=== PATIENT | female | born 1975 | race Caucasian/White ===

== ENCOUNTER 2017-01-14 08:55 | Emergency (ER) | payer MEDICAID, OTHER ==
[2017-01-14 08:55] VITALS: BMI 27.3
[2017-01-14 09:12] VITALS: BP 115/70; PULSE 118; RESP 20; TEMP 101.3; O2SAT 100
--- NOTE | 2017-01-14 09:35 | C.PDOC ---
History Of Present Illness 41 year old female presents to the ED c/o mid-back pain for 3 days. Patient notes no radiation of pain. Patient was recently diagnose with herniated disks and is due for another MRI. Patient notes pain is unrelieved by Advil. Patient denies vomiting, nausea, SOB, fever, chills, weakness or numbness of the extremities or any other complaints. Time Seen by Provider: 01/14/17 09:27 Chief Complaint (Nursing): Back Pain History Per: Patient History/Exam Limitations: no limitations Onset/Duration Of Symptoms: Days Current Symptoms Are (Timing): Still Present Severity: Mild Previous Symptoms: Other (Herniated disks) Past Medical History Reviewed: Historical Data, Nursing Documentation, Vital Signs Vital Signs: Last Vital Signs Temp 101.3 F H 01/14/17 09:12 Pulse 118 H 01/14/17 09:12 Resp 20 01/14/17 09:12 BP 115/70 01/14/17 09:12 Pulse Ox 100 01/14/17 14:37 - Medical History PMH: Asthma Family History: States: Unknown Family Hx - Social History Hx Alcohol Use: Yes Hx Substance Use: No Review Of Systems Except As Marked, All Systems Reviewed And Found Negative. Constitutional: Negative for: Fever, Chills Gastrointestinal: Negative for: Nausea, Vomiting Musculoskeletal: Positive for: Back Pain (Mid back) Neurological: Negative for: Weakness, Numbness Physical Exam - Physical Exam Appears: Non-toxic, No Acute Distress Skin: Warm, Dry Head: Atraumatic, Normacephalic Cardiovascular: Rhythm Regular, No Murmur Respiratory: Normal Breath Sounds, No Rales, No Rhonchi, No Wheezing Gastrointestinal/Abdominal: Soft, No Tenderness Back: Paraspinal Tenderness (L1 and L2) Neurological/Psych: Oriented x3, Normal Speech, Normal Cognition, No Cerebellar Signs ED Course And Treatment O2 Sat by Pulse Oximetry: 100 (Room air) Pulse Ox Interpretation: Normal Medical Decision Making Medical Decision Making: No indication for imaging at this time Plans: -Flexeril -Toradol Home with meds PCP f/u Disposition - Disposition Disposition: HOME/ ROUTINE Disposition Time: 09:32 Condition: GOOD Additional Instructions: Follow up with PCP Dont take any motrin or aleve with the Rx meds Prescriptions: Cyclobenzaprine [Cyclobenzaprine HCl] 1 tab PO Q8H PRN #25 tab PRN Reason: Muscle Spasm Meloxicam [Mobic] 1 tab PO DAILY PRN #20 tab PRN Reason: .Pain, Instructions: Back Pain (ED) - Clinical Impression Clinical Impression: Mid back pain - Scribe Statement The provider has reviewed the documentation as recorded by the Scribe Jorge crowder All medical record entries made by the Scribe were at my direction and personally dictated by me. I have reviewed the chart and agree that the record accurately reflects my personal performance of the history, physical exam, medical decision making, and the department course for this patient. I have also personally directed, reviewed, and agree with the discharge instructions and disposition.
== END 2017-01-14 09:51 | disposition home or self-care (01) ==
LOC: C.ER 08:55
DX: M54.89 Other dorsalgia (principal)
CPT/HCPCS: 96372; 99283; J1885

== ENCOUNTER 2017-02-08 11:35 | Emergency (ER) | payer MEDICAID ==
[2017-02-08 11:35] VITALS: BMI 27.3
--- NOTE | 2017-02-08 12:54 | C.PDOC ---
History Of Present Illness 41 y/o female presents to the ED with complains of vaginal bleeding since . Pt states she had abnormal US 6-7 months ago, doesn't know why. Pt also reports cramping pelvic pain. Denies dizziness, vomiting, diarrhea, chest pain, SOB or any other complaints. Time Seen by Provider: 02/08/17 12:04 Chief Complaint (Nursing): Female Genitourinary History Per: Patient History/Exam Limitations: no limitations Onset/Duration Of Symptoms: Days Current Symptoms Are (Timing): Still Present Severity: Moderate Quality Of Discomfort: Cramping Associated Symptoms: denies: Fever, Nausea, Vomiting, Diarrhea, Chest Pain Alleviating Factors: None Recent travel outside of the [place]: No Abnormal Vaginal Bleeding: Yes Past Medical History Reviewed: Historical Data, Nursing Documentation, Vital Signs Vital Signs: Last Vital Signs Temp 98 F 02/08/17 16:21 Pulse 80 02/08/17 16:21 Resp 20 02/08/17 16:21 BP 110/70 02/08/17 16:21 Pulse Ox 99 02/08/17 16:23 - Medical History PMH: Asthma Family History: States: Unknown Family Hx - Social History Hx Alcohol Use: Yes Hx Substance Use: No - Immunization History Hx Tetanus Toxoid Vaccination: No Hx Influenza Vaccination: No Hx Pneumococcal Vaccination: No Review Of Systems Except As Marked, All Systems Reviewed And Found Negative. Constitutional: Negative for: Fever, Chills Cardiovascular: Negative for: Chest Pain Respiratory: Negative for: Shortness of Breath Gastrointestinal: Positive for: Abdominal Pain. Negative for: Nausea, Vomiting , Diarrhea Genitourinary: Positive for: Vaginal Bleeding Neurological: Negative for: Dizziness Physical Exam - Physical Exam Appears: Non-toxic, No Acute Distress Skin: Warm, Dry, No Rash Head: Atraumatic, Normacephalic Chest: Symmetrical Cardiovascular: Rhythm Regular, No Murmur Respiratory: Normal Breath Sounds, No Rales, No Rhonchi, No Wheezing Gastrointestinal/Abdominal: Soft, Tenderness (mild suprapubic), No Guarding, No Rebound Back: No CVA Tenderness Extremity: Normal ROM Extremity: Bilateral: Atraumatic Neurological/Psych: Oriented x3, Normal Speech ED Course And Treatment O2 Sat by Pulse Oximetry: 99 (room air) Pulse Ox Interpretation: Normal - CT Scan/US Pelvic US Other Rad Studies (CT/US): Read By Radiologist, Radiology Report Reviewed CT/US Interpretation: Accession No. : [id number]. Patient Name / ID : FELIPE BURCIAGA / [id number]. Exam Date : 02/08/2017 14:27:41 ( Approved ). Study Comment : Sex / Age : F / 41Y. Creator : Martinez Freitas MD. Dictator : Martinez Freitas MD. Spring Up Supervisor : Layout Designer : Martinez Freitas MD. Approver2 : Report Date : 02/08/2017 16:01:27. My Comment : . PROCEDURE: HISTORY: pelvic pain, vaginal bleeding x 2 wks. COMPARISON: TECHNIQUE: FINDINGS: The uterus measures 11.7 x 4.2 x 5.2 centimeters. The endometrium is thickened and heterogeneous measuring 17 millimeters. There is a 2.4 x 2.0 x 2.4 centimeter right-sided fibroid. The right ovary measures 3.8 x 2.1 x 2.1 centimeters. There is a right adnexal cyst measuring 4.7 centimeters. The left arm measures 1.7 x 1.2 x 1.6 centimeters. There is minimal free fluid in the cul-de-sac. IMPRESSION: Thickened endometrium. 4.7 centimeter right ovarian cyst. Recommend short-term interval followup in 2-3 menstrual cycles or correlation with pelvic MRI with contrast. Progress Note: Patient was d/c home with OBGYN follow up tomorrow. US report was given to the patient. Medical Decision Making Medical Decision Making: Plan: urine POC, US abdomen Disposition - Disposition Disposition: HOME/ ROUTINE Disposition Time: 16:07 Condition: GOOD Additional Instructions: Follow up with your OBGYN within 1-2 days. Return to ED if feel worse. Instructions: Dysfunctional Uterine Bleeding (ED), Ovarian Cyst (ED), Uterine Fibroids (ED) - Clinical Impression Clinical Impression: DUB (dysfunctional uterine bleeding), Uterine fibroid, Ovarian cyst - PA / CARPENTER BRIDGE / Resident Statement MD/DO has reviewed & agrees with the documentation as recorded. - Scribe Statement The provider has reviewed the documentation as recorded by the Melchoribmart Blackman All medical record entries made by the Kathya were at my direction and personally dictated by me. I have reviewed the chart and agree that the record accurately reflects my personal performance of the history, physical exam, medical decision making, and the department course for this patient. I have also personally directed, reviewed, and agree with the discharge instructions and disposition.
--- NOTE | 2017-02-08 16:02 | US ---
PROCEDURE: HISTORY: pelvic pain, vaginal bleeding x 2 wks COMPARISON: TECHNIQUE: FINDINGS: The uterus measures 11.7 x 4.2 x 5.2 centimeters. The endometrium is thickened and heterogeneous measuring 17 millimeters. There is a 2.4 x 2.0 x 2.4 centimeter right-sided fibroid. The right ovary measures 3.8 x 2.1 x 2.1 centimeters. There is a right adnexal cyst measuring 4.7 centimeters. The left arm measures 1.7 x 1.2 x 1.6 centimeters. There is minimal free fluid in the cul-de-sac. IMPRESSION: Thickened endometrium. 4.7 centimeter right ovarian cyst. Recommend short-term interval followup in 2-3 menstrual cycles or correlation with pelvic MRI with contrast.
[2017-02-08 16:22] VITALS: BP 110/70; PULSE 80; RESP 20; TEMP 98
[2017-02-08 16:23] VITALS: O2SAT 99
== END 2017-02-08 16:22 | disposition home or self-care (01) ==
LOC: C.ER 11:35
DX: N93.8 Other specified abnormal uterine and vaginal bleeding (principal); D25.9 Leiomyoma of uterus, unspecified; N83.201 Unspecified ovarian cyst, right side

== ENCOUNTER 2018-06-08 08:10 | Day surgery (SDC) | payer MEDICAID ==
[2018-06-08 08:39] VITALS: BMI 29.2
[2018-06-08 09:08] VITALS: BP 115/80; PULSE 84; RESP 20; TEMP 97.1; O2SAT 98
== END 2018-06-08 10:30 | disposition home or self-care (01) ==
LOC: C.ENDO 08:10
PROVIDERS: ATTEND Internal Medicine Gastroenterology
DX: K30 Functional dyspepsia (principal); Z53.09 Procedure and treatment not carried out because of other contraindication; R06.2 Wheezing